=== PATIENT | female | born 1985 | race Asian ===

== ENCOUNTER 2018-04-29 22:35 | Emergency (ER) | payer MEDICAID, MEDICARE ==
[~2018-04-29] VITALS: Ht 157.5 cm; Wt 74.2 kg
[2018-04-29 22:38] VITALS: BP 126/78
== END 2018-04-29 23:56 | disposition home or self-care (01) ==
LOC: ED 23:50
DX: Q90.9 Down syndrome, unspecified (principal); Z76.0 Encounter for issue of repeat prescription; I10 Essential (primary) hypertension; E11.9 Type 2 diabetes mellitus without complications; G40.909 Epilepsy, unspecified, not intractable, without status epilepticus
CPT/HCPCS: 99283